=== PATIENT | female | born 1970 | race Caucasian/White ===

== ENCOUNTER → 2023-10-18 08:19 | Outpatient (CLI) | payer OTHER, SELFPAY ==
--- NOTE | 2023-10-18 | DI.MRI.S_ITS ---
PROCEDURE: MR ANKLE LT WO CON INDICATIONS: Pain in left foot TECHNIQUE: Noncontrast sagittal T1 spin echo and T2 fast spin echo with fat saturation, axial proton density fast spin echo and T2 fast spin echo with fat saturation, coronal T1 spin echo and T2 fast spin echo with fat saturation through the ankle/hindfoot. COMPARISON: None. FINDINGS: Image quality: Excellent. Bones and joints: Mild midfoot and hindfoot joint osteoarthritic changes are seen with joint space narrowing and subchondral sclerosis. No marrow edema. No acute fracture or dislocation. Is No hindfoot coalitions. Tiny T2 hyperintense signal involving medial weight-bearing portion of talar dome which may indicate tiny osteochondral injury in this area measures 1-2 mm in size. Small tibiotalar and subtalar joint effusion is seen, no gross loose bodies. Medial structures: The posterior tibialis, flexor digitorum longus, and flexor hallucis longus tendons are intact. The posterior tibial neurovascular bundle appears normal within the tarsal tunnel, without extrinsic mass effect. The deep layer (anterior and posterior tibiotalar ligaments) and superficial layer (tibionavicular, tibiospring, and tibiocalcaneal ligaments) of the deltoid ligament appear normal. The spring ligament components (superomedial calcaneonavicular, medioplantar oblique calcaneonavicular, and inferoplantar longitudinal ligaments) are intact. Lateral structures: The anterior talofibular, calcaneofibular, and posterior talofibular ligaments appear thickened with subtle intrasubstance T2 hyperintense signal. More superiorly, the anterior and posterior tibiofibular ligaments appear intact, as is the intermalleolar ligament. The tibiofibular syndesmosis is normal in width at 2 mm or less. The peroneus longus and brevis tendons are thickened at the level of mid to distal calcaneus and calcaneocuboid joint. Adjacent bony peroneal tubercle and retrotrochlear prominence are normal in size. The sinus tarsi demonstrates normal fatty signal, without edema, fibrosis, or cyst formation. Visualized sinus tarsi components (cervical ligament, interosseous talocalcaneal ligament, roots of the inferior extensor retinaculum) appear normal. The calcaneonavicular and calcaneocuboid components of the bifurcate ligament appear intact. The dorsal calcaneocuboid ligament appears intact. Anterior structures: The tibialis anterior, extensor hallucis longus, and extensor digitorum longus tendons appear intact. The dorsal talonavicular ligament appears intact. Posterior and plantar structures: Achilles tendon is intact. Attenuated appearing medial band of plantar fascia at its plantar calcaneal insertion is seen with surrounding edema. No abductor digiti quinti muscle atrophy to suggest Treviño neuropathy. IMPRESSION: 1. Mild midfoot and hindfoot joint osteoarthritis. No marrow edema. No acute fracture or dislocation. Possible tiny osteochondral injury involving medial aspect of talar dome. Small joint effusion, no gross loose bodies. 2. Low-grade sprain/intrasubstance partial-thickness tear involving anterior and posterior talofibular ligaments and calcaneofibular ligament. 3. Mild peroneus longus and brevis tendinosis at the level of mid to distal calcaneus and calcaneocuboid joint. 4. Suggestion of low to moderate grade partial-thickness tear involving medial band of plantar fascia near its plantar calcaneal insertion. Dictated by: Jose Aguirre M.D. on 10/18/2023 at 11:52 Approved by: Jose Aguirre M.D. on 10/18/2023 at 12:46
== END ==
LOC: MRI 08:20
PROVIDERS: Family Provider Family Medicine; Referring Provider Podiatrist; Visit Provider Podiatrist
DX: M19.072 Primary osteoarthritis, left ankle and foot (principal); S93.412A Sprain of calcaneofibular ligament of left ankle, initial encounter; S93.492A Sprain of other ligament of left ankle, initial encounter; M79.672 Pain in left foot; M25.472 Effusion, left ankle
CPT/HCPCS: 73721